=== PATIENT | male | born 1995 | race Caucasian/White ===

== ENCOUNTER 2017-02-25 19:16 | Emergency (ER) | payer BC ==
[~2017-02-25] VITALS: Ht 175.3 cm; Wt 77.1 kg
--- NOTE | 2017-02-25 19:30 | NUR ---
BIB [facility] FROM HOME, ACCORDING TO PARAMEDICS AND [employer], HAD ARGUEMENT WITH FATHER BECAUSE OF POSSIBLE PSYCH PLACEMENT. PATIENT DENIES ANY SI/HI AT THIS TIME.
--- NOTE | 2017-02-25 19:41 | NUR ---
DR. SEVERINO AT BEDSIDE FOR MSE.
[2017-02-25 20:19] LABS: *BILIRUBIN,URIN NEGATIVE (NEGATIVE); *BLOOD, URINE Trace-intact (NEGATIVE); *CLARITY,URINE CLEAR (CLEAR); *COLOR,URINE YELLOW (YELLOW); *KETONES,URINE NEGATIVE (NEGATIVE); *PROTEIN,URINE NEGATIVE (NEGATIVE); *UROBILINOGEN,URINE 0.2 E.U./dl (NORMAL); LEUKOCYTE ESTERASE ,URINE NEGATIVE (NEGATIVE); NITRITE, URINE NEGATIVE (NEGATIVE); UGLUCOSE NEGATIVE (NEGATIVE)
[2017-02-25 20:27] LABS: BACTERIA,URINE NONE SEEN /HPF (NONE SEEN); RBC,URINE 0-3 /HPF (0-3); SQUAMOUS EPITHELIAL CELL,UR NONE SEEN /HPF (NONE SEEN); WBC,URINE 0-3 /HPF (0-3)
[2017-02-25 20:30] LABS: BASOPHILS # (AUTO) 0.3 K/uL (0.0-8.0); BASOPHILS % (AUTO) 1.5 % (0.0-2.0); EOSINOPHILS % (AUTO) 0.1 % (0.0-7.0); HEMATOCRIT 43.5 % (40-50); HEMOGLOBIN 14.7 G/DL (14.0-18.0); LYMPHOCYTES # (AUTO) 2.2 K/UL (0.8-4.8); LYMPHOCYTES % (AUTO) 12.6 % (20.5-74.5); MEAN CORPUSCULAR HEMOGLOBIN 29.7 UUG (27.0-31.0); MEAN CORPUSCULAR HGB CONC 34 g/dL (32.0-37.0); MEAN CORPUSCULAR VOLUME 87.9 FL (82.0-92.0); MONOCYTES # (AUTO) 1.1 K/UL (0.1-1.30); MONOCYTES % (AUTO) 6.4 % (0-11); NEUTROPHILS # (AUTO) 13.9 K/UL (1.8-8.9); NEUTROPHILS % (AUTO) 79.4 % (31.5-64.5); PLATELET COUNT (AUTO) 283 K/UL (150-450); RED BLOOD CELL COUNT(AUTO) 4.95 MIL/UL (4.7-6.1); WHITE BLOOD COUNT (AUTO) 17.5 K/UL (4.0-11.2)
[2017-02-25 20:35] LABS: *AMPHETAMINE, URINE NEGATIVE (NEGATIVE); *BARBITURATE, URINE NEGATIVE (NEGATIVE); *CANNABINOID, URINE POSITIVE (NEGATIVE); *COCCAINE, URINE NEGATIVE (NEGATIVE); *OPIATE, URINE NEGATIVE (NEGATIVE); *PHENCYCLIDINE SCREEN,URINE NEGATIVE (NEGATIVE)
[2017-02-25 20:41] LABS: CARBON DIOXIDE 32 mmol/L (21-32); CHLORIDE 99 mmol/L (98-107); CREATININE 1.2 mg/dL (0.6-1.3); GLUCOSE 88 mg/dL (74-106); POTASSIUM 3.9 mmol/L (3.5-5.1); UREA NITROGEN, BLOOD 12 mg/dL (7-18)
--- NOTE | 2017-02-25 20:42 | NUR ---
Call placed to [facility]son for PET evaluation, ETA 30 min.
[2017-02-25 20:45] LABS: ETHANOL < 3 MG/DL (0-0)
[2017-02-25 20:54] LABS: ALANINE AMINOTRANSFERASE 32 U/L (16-63); ALKALINE PHOSPHATASE 74 U/L (50-136); ASPARTATE AMINOTRANSFERASE 39 U/L (15-37); BILIRUBIN,DIRECT 0.2 mg/dL (0.0-0.2); BILIRUBIN,TOTAL 0.7 mg/dL (0.2-1.0); TOTAL PROTEIN, SERUM 8.9 g/dL (6.4-8.2)
[2017-02-25 20:55] LABS: ACETAMINOPHEN < 2.0 ug/mL (10-30)
--- NOTE | 2017-02-25 21:10 | NUR ---
TOMMIE RANGEL HERE TO EVALUATE PATIENT.
--- NOTE | 2017-02-25 22:14 | NUR ---
Patient discharged to home in stable conditon. Written and verbal after care instructions given. Patient verbalizes understanding of instructions. PATIENT LEFT WITH STABLE GAIT, ACCOMPANIED BY FAMILY.
[2017-02-25 22:15] VITALS: BP 122/97
== END 2017-02-25 22:16 | disposition home or self-care (01) ==
LOC: ER 19:17
DX: F31.9 Bipolar disorder, unspecified (principal); F41.9 Anxiety disorder, unspecified; F90.9 Attention-deficit hyperactivity disorder, unspecified type
CPT/HCPCS: 36415; 80307; 85025; A4663; G0480; G0480-TC

== ENCOUNTER 2022-06-29 12:20 | Emergency (ER) | payer BC ==
[~2022-06-29] VITALS: Ht 182.9 cm; Wt 108.9 kg
[2022-06-29] MEDS ORDERED: HALOPERIDOL LACTATE 5 MG/1 ML VIAL ONE ×2 (12:30→14:52)
[2022-06-29] MEDS ORDERED: LORAZEPAM 2 MG/1 ML VIAL ONE ×2 (12:30→14:54)
[2022-06-29] MEDS ORDERED: QUET25TA3 (12:41)
[2022-06-29] MEDS ORDERED: DEPAKOTE (12:41)
[2022-06-29] MEDS ORDERED: LORAZEPAM 2 MG/1 ML VIAL IM ONE ×2 (12:45→15:00)
[2022-06-29] MEDS ORDERED: HALOPERIDOL LACTATE 5 MG/1 ML VIAL IM ONE ×2 (12:45→15:00)
[2022-06-29 12:50] LABS: HEMATOCRIT 42.8 % (36.7-47.1); MEAN CORPUSCULAR HEMOGLOBIN 30.6 uug (23.8-33.4); MEAN CORPUSCULAR VOLUME 90.8 fL (73.0-96.2); PLATELET COUNT (AUTO) 248 K/uL (152-348)
--- NOTE | 2022-06-29 12:57 | NUR ---
AT BEDSIDE FOR EVALUATION.
--- NOTE | 2022-06-29 12:57 | NUR ---
INFRASTRUCTURE PROJECT MANAGER HERE TO SEE PATIENT.
[2022-06-29 13:06] LABS: ACETAMINOPHEN < 2.0 ug/mL (10-30)
--- NOTE | 2022-06-29 13:09 | NUR ---
GA GOMES AND MATEO FROM CRISIS TEAM HERE TO SEE PT.
--- NOTE | 2022-06-29 13:11 | NUR ---
PT CALM AND COOPERATIVE AT THIS TIME, ORDER FOR RESTRAINTS CANCELLED BY MD.
[2022-06-29 13:15] LABS: ETHANOL < 3 MG/DL (0-0)
[2022-06-29 13:24] LABS: CREATININE 1.3 mg/dL (0.6-1.3); POTASSIUM 4.3 mmol/L (3.5-5.1)
[2022-06-29 13:30] LABS: BILIRUBIN,TOTAL 0.7 mg/dL (0.2-1.0); TOTAL PROTEIN, SERUM 8.3 g/dL (6.4-8.2)
[2022-06-29 13:43] LABS: *BILIRUBIN,URIN NEGATIVE (NEGATIVE); *CLARITY,URINE CLEAR (CLEAR); *COLOR,URINE YELLOW (YELLOW); *KETONES,URINE NEGATIVE (NEGATIVE); *UROBILINOGEN,URINE 0.2 E.U./dl (NORMAL); LEUKOCYTE ESTERASE ,URINE NEGATIVE (NEGATIVE); NITRITE, URINE NEGATIVE (NEGATIVE); PH,URINE 7.5 (5.0-8.0); UGLUCOSE NEGATIVE (NEGATIVE)
--- NOTE | 2022-06-29 14:00 | NUR ---
Recieved a call from [facility]. Spoke to Dianna @ [phone]. Awaiting Pt to be off restraines for possible Tx. Removed pt Lt wrist soft restraine. licensing officer observing Pt.
[2022-06-29 14:06] LABS: *BLOOD, URINE TRACE (NEGATIVE)
[2022-06-29 14:17] LABS: *AMPHETAMINE, URINE NEGATIVE (NEGATIVE); *CANNABINOID, URINE POSITIVE (NEGATIVE); *COCCAINE, URINE POSITIVE (NEGATIVE); *PHENCYCLIDINE SCREEN,URINE NEGATIVE (NEGATIVE)
[2022-06-29 14:38] LABS: BACTERIA,URINE FEW /HPF (NONE SEEN); SQUAMOUS EPITHELIAL CELL,UR FEW /HPF (NONE SEEN); WBC,URINE NONE SEEN /HPF (0-3)
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
--- NOTE | 2022-06-29 15:24 | NUR ---
REPORT TO LEONILA OF [facility] .
--- NOTE | 2022-06-29 17:10 | NUR ---
Patient is resting comfortably in bed with eyes closed, NAD noted.
--- NOTE | 2022-06-29 18:03 | NUR ---
Pt walked to bathroom w/ steady gait.
--- NOTE | 2022-06-29 18:10 | NUR ---
[facility] provided bed & MD info for pt's transfer. Dr Antunez signed transfer paperwork.
--- NOTE | 2022-06-29 19:15 | NUR ---
PT ASLEEP AT THIS TIME, STILL AWAITING WORD FROM SYMONE WALTONO.
--- NOTE | 2022-06-29 19:45 | NUR ---
Called [facility] and gave report to STIVEN Hatfield.
--- NOTE | 2022-06-29 19:46 | NUR ---
Andie arrived to case picker patient. Unit #[id number].
== END 2022-06-29 20:01 ==
LOC: ER 12:20
DX: F20.9 Schizophrenia, unspecified (principal); F31.9 Bipolar disorder, unspecified; Z20.822 Contact with and (suspected) exposure to COVID-19; D72.829 Elevated white blood cell count, unspecified; R74.01 Elevation of levels of liver transaminase levels; F90.9 Attention-deficit hyperactivity disorder, unspecified type
CPT/HCPCS: 80053; 81001; 85025; 87426; 36415; 99285; 96372 ×2; 80299; 80320; 80307; U0003; C9803; J1630 ×2; J2060 ×2; A4663; G0480

== ENCOUNTER 2023-02-11 14:11 | Emergency (ER) | payer BC ==
[~2023-02-11] VITALS: Ht 172.7 cm; Wt 104.3 kg
[~2023-02-11 14:11] MED LIST: DEPAKOTE; QUET25TA3
[2023-02-11] MEDS ORDERED: GABAPENTIN (14:17)
[2023-02-11] MEDS ORDERED: LORAZEPAM 2 MG/1 ML VIAL IM ONE (14:30)
[2023-02-11] MEDS ORDERED: LORAZEPAM 2 MG/1 ML VIAL ONE (14:37)
[2023-02-11 14:52] LABS: BASOPHILS # (AUTO) 0.1 K/UL (0.0-0.2); BASOPHILS % (AUTO) 0.5 % (0.0-2.0); DIFFERENTIAL COMMENT 0; EOSINOPHILS % (AUTO) 0.3 % (0.0-7.0); HEMATOCRIT 42.3 % (36.7-47.1); HEMOGLOBIN 14.2 g/dL (12.5-16.3); LYMPHOCYTES # (AUTO) 2.3 K/uL (0.8-4.8); LYMPHOCYTES % (AUTO) 15.2 % (20.5-51.5); MEAN CORPUSCULAR HEMOGLOBIN 29.1 uug (23.8-33.4); MEAN CORPUSCULAR HGB CONC 34 g/dL (32.5-36.3); MEAN CORPUSCULAR VOLUME 86.5 fL (73.0-96.2); MONOCYTES % (AUTO) 6.8 % (0.0-11.0); NEUTROPHILS # (AUTO) 11.8 K/uL (1.8-8.9); NEUTROPHILS % (AUTO) 77.2 % (38.5-71.5); PLATELET COUNT (AUTO) 309 K/uL (152-348); RED BLOOD CELL COUNT(AUTO) 4.89 MIL/uL (4.06-5.63); RED CELL DISTRIBUTION WIDTH 14.5 % (12.1-16.2); WHITE BLOOD COUNT (AUTO) 15.2 K/uL (3.6-10.2)
[2023-02-11 14:53] LABS: AMMONIA 13 umol/L (11-32)
[2023-02-11 15:00] LABS: ALANINE AMINOTRANSFERASE 45 U/L (16-63); ALBUMIN 3.9 g/dL (3.4-5.0); ALKALINE PHOSPHATASE 69 U/L (50-136); ASPARTATE AMINOTRANSFERASE 20 U/L (15-37); BILIRUBIN,DIRECT 0.1 mg/dL (0.0-0.2); BILIRUBIN,TOTAL 0.4 mg/dL (0.2-1.0); CARBON DIOXIDE 26 mmol/L (21-32); CHLORIDE 97 mmol/L (98-107); CREATININE 1.2 mg/dL (0.6-1.3); GLUCOSE 104 mg/dL (74-106); SODIUM SERUM 135 mmol/L (136-145); TOTAL PROTEIN, SERUM 7.8 g/dL (6.4-8.2); UREA NITROGEN, BLOOD 9 mg/dL (7-18)
[2023-02-11 15:01] LABS: *BILIRUBIN,URIN NEGATIVE (NEGATIVE); *BLOOD, URINE 1+ (NEGATIVE); *CLARITY,URINE CLEAR (CLEAR); *COLOR,URINE YELLOW (YELLOW); *KETONES,URINE NEGATIVE (NEGATIVE); *PROTEIN,URINE NEGATIVE (NEGATIVE); *UROBILINOGEN,URINE 0.2 E.U./dl (NORMAL); LEUKOCYTE ESTERASE ,URINE NEGATIVE (NEGATIVE); NITRITE, URINE NEGATIVE (NEGATIVE); UGLUCOSE NEGATIVE (NEGATIVE)
[2023-02-11 15:05] LABS: *AMPHETAMINE, URINE POSITIVE (NEGATIVE); *BARBITURATE, URINE NEGATIVE (NEGATIVE); *BENZODIAZEPINE, URINE NEGATIVE (NEGATIVE); *CANNABINOID, URINE POSITIVE (NEGATIVE); *COCCAINE, URINE NEGATIVE (NEGATIVE); *OPIATE, URINE NEGATIVE (NEGATIVE); *PHENCYCLIDINE SCREEN,URINE NEGATIVE (NEGATIVE); FENTANYL, URINE NEGATIVE (NEGATIVE)
[2023-02-11 15:07] LABS: ACETAMINOPHEN < 10.0 ug/mL (10-30); ETHANOL < 3 MG/DL (0-10)
[2023-02-11 15:08] LABS: THYROID STIMULATING HORMONE 2.614 mIU/mL (0.358-3.740)
[2023-02-11 15:50] LABS: BACTERIA,URINE FEW /HPF (NONE SEEN); RBC,URINE 0-3 /HPF (0-3); SQUAMOUS EPITHELIAL CELL,UR FEW /HPF (NONE SEEN); WBC,URINE NONE SEEN /HPF (0-3)
[2023-02-11 16:01] VITALS: O2SAT 96
== END 2023-02-11 16:30 | disposition left against medical advice (07) ==
LOC: ER 14:11
DX: F15.10 Other stimulant abuse, uncomplicated (principal); R07.89 Other chest pain; F31.9 Bipolar disorder, unspecified; Z91.018 Allergy to other foods; Z79.899 Other long term (current) drug therapy
CPT/HCPCS: 80076; 80048; 81001; 82140; 84443; 85025; 85379; 85730; 84484; 36415; 93005; 99284; 96372; 80299; 80320; 80307; J2060; A4663; G0480

== ENCOUNTER 2023-07-05 23:33 | Emergency (ER) | payer BC ==
[~2023-07-05] VITALS: Ht 182.9 cm; Wt 108.9 kg
[~2023-07-05 23:33] MED LIST changes: +GABAPENTIN
[2023-07-06] MEDS: IV NORMAL SALINE 1000 ML BAG IV ONE
[2023-07-06 00:10] LABS: BASOPHILS # (AUTO) 0.2 K/UL (0.0-0.2); BASOPHILS % (AUTO) 1.5 % (0.0-2.0); EOSINOPHILS # (AUTO) 0.1 K/uL (0.0-0.7); EOSINOPHILS % (AUTO) 0.8 % (0.0-7.0); HEMATOCRIT 38.3 % (36.7-47.1); LYMPHOCYTES # (AUTO) 1.6 K/uL (0.8-4.8); LYMPHOCYTES % (AUTO) 11.1 % (20.5-51.5); MEAN CORPUSCULAR HEMOGLOBIN 29.2 uug (23.8-33.4); MEAN CORPUSCULAR HGB CONC 34 g/dL (32.5-36.3); MEAN CORPUSCULAR VOLUME 86.1 fL (73.0-96.2); MONOCYTES # (AUTO) 0.7 K/uL (0.1-1.30); MONOCYTES % (AUTO) 5.1 % (0.0-11.0); NEUTROPHILS # (AUTO) 11.4 K/uL (1.8-8.9); NEUTROPHILS % (AUTO) 81.5 % (38.5-71.5); PLATELET COUNT (AUTO) 324 K/uL (152-348); RED BLOOD CELL COUNT(AUTO) 4.45 MIL/uL (4.06-5.63); RED CELL DISTRIBUTION WIDTH 14.5 % (12.1-16.2)
[2023-07-06 00:12] LABS: DIFFERENTIAL COMMENT 1
[2023-07-06] MEDS ORDERED: HALOPERIDOL LACTATE 5 MG/1 ML VIAL ONE (00:14)
[2023-07-06] MEDS ORDERED: LORAZEPAM 2 MG/1 ML VIAL ONE (00:15)
[2023-07-06] MEDS: LORAZEPAM 2 MG/1 ML VIAL IV ONE (00:20)
[2023-07-06] MEDS: HALOPERIDOL LACTATE 5 MG/1 ML VIAL IV ONE (00:20)
[2023-07-06 00:27] LABS: ETHANOL < 3 MG/DL (0-10)
[2023-07-06 00:35] LABS: CALCIUM 9.2 mg/dL (8.5-10.1); CARBON DIOXIDE 27 mmol/L (21-32); CHLORIDE 98 mmol/L (98-107); CREATININE 1.2 mg/dL (0.6-1.3); GLUCOSE 98 mg/dL (74-106); POTASSIUM 3.6 mmol/L (3.5-5.1); SODIUM SERUM 133 mmol/L (136-145); UREA NITROGEN, BLOOD 10 mg/dL (7-18)
[2023-07-06 00:40] LABS: ALANINE AMINOTRANSFERASE 45 U/L (16-63); ALBUMIN 3.8 g/dL (3.4-5.0); ALKALINE PHOSPHATASE 72 U/L (50-136); ASPARTATE AMINOTRANSFERASE 25 U/L (15-37); BILIRUBIN,TOTAL 1.5 mg/dL (0.2-1.0)
[2023-07-06 00:44] LABS: ACETAMINOPHEN < 2.0 ug/mL (10-30)
[2023-07-06] MEDS ORDERED: OLAN5TAB3 PO (01:10)
[2023-07-06 04:31] VITALS: BP 129/61; TEMP 207.7; O2SAT 99
== END 2023-07-06 04:20 | disposition home or self-care (01) ==
LOC: ER 23:38
DX: F15.90 Other stimulant use, unspecified, uncomplicated (principal); F20.9 Schizophrenia, unspecified; F31.9 Bipolar disorder, unspecified; Z79.899 Other long term (current) drug therapy
CPT/HCPCS: 80053; 85025; 36415; 93005; 99284; 80299; 80320; 96361; 96374; 96375; J1630; J2060; J7040; A4606; A4663; G0480